=== PATIENT | male | born 1980 | race Caucasian/White ===

== ENCOUNTER 2019-05-20 19:51 | Emergency (ER) | payer BC, OTHER ==
[2019-05-20 20:13] VITALS: BMI 25.8
--- NOTE | 2019-05-20 20:15 | PDOC ---
Rapid Medical Evaluation Time Seen by Provider: 05/20/19 20:05 Medical Evaluation: Allergies Allergy/AdvReac Type Severity Reaction Status Date / Time No Known Allergies Allergy Verified 05/20/19 20:05 05/20/19 20:06 Pt presents to the ER for evaluation of a hand infection. Was sent by urgent care. States he feels like he got something stuck in the skin and then it got infected. Exam: Unable to make a fist. No pain with passive flexion. R handed Orders: Labs, IV Pt to proceed to the ER for further evaluation Discharge Disposition - Diagnosis Hand pain - Referrals - Patient Instructions - Post Discharge Activity
[2019-05-20] MEDS ORDERED: ACETAMINOPHEN 1000 MG/100 ML VIAL (NON FORMULARY) IVPB ONE (20:38)
[2019-05-20] MEDS ORDERED: VANCOMYCIN HCL 1,500 MG in DEXTROSE 5%-WATER - 500 ML IVPB ONE (20:40)
--- NOTE | 2019-05-20 20:55 | PDOC ---
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
[2019-05-20] MEDS ORDERED: LACTATED RINGERS SOLUTION 1,000 ML/1,000 ML INFUS.BAG IV SCH (21:15)
[2019-05-20] MEDS ORDERED: ACETAMINOPHEN INJECTION 100 ML IVPB ONE (21:15)
[2019-05-20] MEDS ORDERED: PIPERACILLIN/TAZOB 4.5 GM 4.5 GM in DEXTROSE 5%-WATER 100 ML IVPB ONE (21:26)
--- NOTE | 2019-05-20 21:56 | PDOC ---
History of Present Illness - General Chief Complaint: Wound Stated Complaint: SENT BY 'URGENT CARE' Time Seen by Provider: 05/20/19 20:05 History Source: Patient, Other (Urgent Care Discharge Paperwork) Exam Limitations: No Limitations - History of Present Illness Initial Comments: HPI: 38 y/o right handed male presenting to [facility] ER on referral from Narayan FRIAS for evaluation of swelling to right second digit. 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 Over the interim, the digit has started to swell w/ increasing pain. Pt reports difficulty closing the fist. obtained plain films, but did not provide the pt with a disk or a radiology report. Administered a tetanus vaccine and Motrin. Medical Hx: - Herpes Review of Systems: In addition to that documented in the HPI above, the additional ROS was obtained : Constitutional- Denies fevers or chills Head- Denies vision changes ENMT- Denies sore throat CV- Denies chest pain Resp- Denies SOB GI- Denies vomiting or diarrhea - Denies painful urination MSK- Per HPI Skin- Denies new rashes Neuro- Denies new numbness or tingling or weakness Endocrine- Denies polyuria Heme- Denies bleeding or bruising Physical Examination: Vital signs and nursing notes reviewed. Constitutional- Well-developed, well-nourished adult male in no acute distress but in obvious discomfort. Found semi-fowlers on hospital bed. Head- Normocephalic. No obvious external signs of trauma. Neck- Supple, trachea is midline. Cardiovascular / Chest- Regular rate. Peripheral pulses- radial pulses full. Respiratory- Breathing unlabored. Equal chest rise and fall. MSK- right second digit is diffusely swollen and discolored. Digit held in flexion. Puncture site noted on dorsal surface near the MCP joint. Compartment is tense circumferentially. Induration extends to the the thenar eminence. Pain to lateral dorsal surface of digit with passive extension. Neuro- Alert and oriented x4. Moving all four extremities spontaneously. Gait normal. Psych- Affect- appropriate. Mood- normal. Speech was non-labored, non- pressured. MDM: 38 y/o male presenting with 3 days of pain and swelling to right second digit. Afebrile. Vitals unremarkable for hypotension or tachycardia. Physical exam as described above. No foreign body noted on plain films. Concerning for possible flexor tenosynovitis vs other deep space abscess vs retained radiolucent foreign body. Ordered labs and blood cultures. Ordered Vancomycin and Pip-Tazo for broad spectrum abx. Tylenol for pain. LR for IVF. Case discussed with plastic surgeon Dr. Mahan. Suggested calling an orthopedic surgeon. Case discussed Dr. Bazzi PA for orthopedic service. Dr. Bazzi reportedly suggested transfering the pt to a different facility for a hand specialist. Pt offered possible transfer to [facility] or [facility]. Requested [facility] be contacted first. 20 May 2019 22:12 PM 20 May 2019 22:27 PM [address] discussion with Dr. Ardon at [facility]. Verbally appraised of the pts HPI, ED course, and current plan of management. Accepted the pt as a transfer to the ED for further orthopedic evaluation. Provided nursing report to RENEE Mckeon at [facility] ED. Hardeep Vazquez M.D., PGY2 Emergency Medicine Resident Past History - Past Medical History Allergies/Adverse Reactions: Allergies Allergy/AdvReac Type Severity Reaction Status Date / Time No Known Allergies Allergy Verified 05/20/19 20:05 Home Medications: Ambulatory Orders No Home Medications 0 dose .ROUTE UTDICT 09/13/13 COPD: No - Immunization History Immunization Up to Date: Yes - Psycho Social/Smoking Cessation Hx Smoking History: Never smoked Hx Alcohol Use: No Drug/Substance Use Hx: No *Physical Exam - Vital Signs Last Vital Signs Temp Pulse Resp BP Pulse Ox 99.1 F 74 16 118/77 96 05/20/19 21:45 05/20/19 21:45 05/20/19 21:45 05/20/19 21:45 05/20/19 21:45 ED Treatment Course - LABORATORY CBC & Chemistry Diagram: 05/20/19 21:38 05/20/19 21:38 - RADIOLOGY Radiology Studies Ordered: Category Date Time Status CHEST X-RAY PORTABLE* [RAD] Stat Radiology 05/20/19 20:28 Completed FINGER(S) RIGHT [RAD] Stat Radiology 05/20/19 20:37 Completed HAND- RIGHT [RAD] Stat Radiology 05/20/19 20:27 Completed Discharge - Discharge Information Problems reviewed: Yes Clinical Impression/Diagnosis: Infection of right hand Hand pain Qualifiers: Laterality: right Qualified Code(s): M79.641 - Pain in right hand Condition: Stable Disposition: TRANSFER ACUTE CARE/OTHER HOSP - Admission No - Follow up/Referral - Patient Discharge Instructions - Post Discharge Activity - Transfer to Acute Care Facility Receiving Facility Name: [facility] Accepting Physician:: Dr. Ardon Transfer Comment: Nurse report provided by resident MD to RENEE Emerson
[2019-05-20 22:03] LABS: BASO % 0.4 % (0-2.0); EOS % 0.9 % (0-4.5); HEMATOCRIT 45.4 % (35.4-49); LYMPH % 14.6 % (8-40); MCH 29.6 pg (25.7-33.7); MEAN CELL VOLUME 89.7 fl (80-96); MEAN PLT VOLUME 8.1 fl (7.5-11.1); MONO % 7.9 % (3.8-10.2); NEUT % 76.2 % (42.8-82.8); PLATELET COUNT 237 K/MM3 (134-434); RBC 5.05 M/mm3 (4.00-5.60); RDW 13.1 % (11.9-15.9)
[2019-05-20 22:20] LABS: INR 1.23 (0.83-1.09); PROTHROMBIN TIME (PATIENT) 14.5 SEC (9.7-13.0)
[2019-05-20 22:22] LABS: ACTIVATED PTT 34.9 SECONDS (25.2-36.5)
[2019-05-20 22:34] LABS: ALBUMIN 4.2 g/dl (3.4-5.0); BILIRUBIN,TOTAL 0.4 mg/dL (0.2-1); BLOOD UREA NITROGEN 18.6 mg/dL (7-18); CALCIUM 8.7 mg/dL (8.5-10.1); TOT PROT 7.3 g/dl (6.4-8.2)
[2019-05-20 23:02] LABS: ERYTHROCYTE SEDIMENTATION RATE 19 mm/hr (0-10)
[2019-05-20 23:24] VITALS: BP 118/81; PULSE 75; TEMP 99
== END 2019-05-21 01:18 | disposition short-term general hospital (02) ==
LOC: JER 19:51
PROC: 3E03329 Introduction of Other Anti-infective into Peripheral Vein, Percutaneous Approach (ICD-10-PCS; principal; 2019-05-20)
PROC: 3E0337Z Introduction of Electrolytic and Water Balance Substance into Peripheral Vein, Percutaneous Approach (ICD-10-PCS; 2019-05-20)
PROC: 3E033NZ Introduction of Analgesics, Hypnotics, Sedatives into Peripheral Vein, Percutaneous Approach (ICD-10-PCS; 2019-05-20)
DX: S61.431A Puncture wound without foreign body of right hand, initial encounter (principal); L08.9 Local infection of the skin and subcutaneous tissue, unspecified; X58.XXXA Exposure to other specified factors, initial encounter; Y93.9 Activity, unspecified; Y92.89 Other specified places as the place of occurrence of the external cause; Y99.8 Other external cause status
CPT/HCPCS: 36415; 71045-TC-FY; 73130-TC-RT-FY; 73140-TC-RT-FY; 80053; 83605; 85025; 85610; 85651; 85730; 86140; 86850; 86900; 86901; 87040; 99285-25; J0131